=== PATIENT | female | born 1935 | race Caucasian/White ===

== ENCOUNTER 2019-03-26 22:22 | Inpatient (IN) | payer MEDICARE, BC ==
[~2019-03-26] VITALS: Ht 157.5 cm; Wt 50.8 kg
[2019-03-26 23:40] VITALS: BP 123/72
[2019-03-27] MEDS ORDERED: MAG HYDROX/AL HYDROX/SIMETH 30 ML UDC PO PRN
[2019-03-27] MEDS ORDERED: BLOOD SUGAR DIAGNOSTIC 1 EACH STRIP IN ONE
[2019-03-27] MEDS ORDERED: MAGNESIUM HYDROXIDE 30 ML UDC PO PRN
--- NOTE | 2019-03-27 00:16 | NUR ---
GPS RN NOTE: INITIAL ACCUCHECK X1 NOW 107 MG/DL,
[2019-03-27] MEDS ORDERED: DRON400T2 PO (00:22)
[2019-03-27] MEDS ORDERED: ESTR42.511 VG (00:25)
[2019-03-27] MEDS ORDERED: BETA5DRO3 OP (00:27)
[2019-03-27] MEDS ORDERED: BRIN8DRO OP (00:28)
[2019-03-27] MEDS ORDERED: LATA5DRO OP (00:29)
[2019-03-27] MEDS ORDERED: DONE10TA44 PO (00:30)
[2019-03-27] MEDS ORDERED: MEMA10TA56 PO (00:33)
[2019-03-27] MEDS ORDERED: ASPI-1169 PO (00:39)
--- NOTE | 2019-03-27 00:44 | NUR ---
GPS RN NOTE, PATIENT NEEDS A MEDICATION RECONCILIATION PAGED [facility] AND INFORMED DR CHUYITA ALY OF MY FINDINGS. DR CHUYITA ALY STATED, " WILL DID IT AND TAKE CARE OF IT ". ALL ORDERS NOTED AND CARRIED OUT WILL CONTINUE TO MONITOR THIS PATIENT WITH THE HELP OF STAFF.
--- NOTE | 2019-03-27 00:50 | NUR ---
GPS/RN NOTE: ADMITTED DIRECT[facility] FROM [facility] ON 5150 HOLD FOR GD. PATIENT CAME TO THE UNIT AROUND 2330 VIA GURNEY ACCOMPANIED BY 2 PARAMEDICS, HER DAUGHTER AND SON IN-LAW. PLACED PATIENT COMFORTABLY IN BED, SHOWS NO S/S OF ANY PAIN, NO APPARENT DISTRESS NOTED. PER HOLD PATIENT WAS TRANSFERRED FROM [facility] DUE TO PATIENT BEING AGITATED, FEARFUL, RESTLESS, WANDERING AWAY FROM SON'S HOME IN THE MIDDLE OF THE NIGHT FOR FEAR HE OR HIS FRIENDS ARE GOING TO KILL HER. PATIENT NOT SLEEPING FOR AT LEAST A WEEK. FAMILY NOT ABLE TO CARE FOR HER IN HER CURRENT STATE OF MIND. PATIENT KNOWS HER NAME ONLY OTHERWISE IS CONFUSED AND DISORIENTED, DISORGANIZED, HAS POOR SHORT TERM MEMORY.BELONGINGS WERE INVENTORIED AND CHECKED FOR CONTRABAND. PATIENT KNOWS HER NAME ONLY, CONFUSED, DISORIENTED, APPEARS DEPRESSED, COOPERATIVE, INTERACTS WHEN ENGAGED, PLEASANT PATIENT'S RIGHTS HANDBOOK AND MEDICATION GUIDE GIVEN. PATIENT REFUSED TO SIGN CONSENTS, STATED THAT SHE IS FEELING TOO TIRED. PATIENT IS UNDER THE PSYCHIATRIC CARE OF DR. PAINTER AND MEDICAL CARE OF DR. ALY SKIN AND BODY ASSESSMENT WAS DONE, NOTED DISCOLORATION/SKIN TEAR ON HER LEFT ARM AND RIGHT ARM, SCAB ON HER LEFT KNEE, PHOTO TAKEN. NOTIFIED DR. BOOGIE OF MED RECONCILIATION, SAID HE WILL TAKE A LOOK OF THE MEDS. MRSA SCREEN DONE. PATIENT EDUCATED ON THE USE OF CALL NASSAR. BEDSIDE RAILS WERE UP X2 FOR SAFETY. PATIENT BED LOCKED AND PLACED ON LOWEST POSITION. WILL CONTINUE TO MONITOR Q 15 MINS. WITH THE HELP OF THE STAFF FOR SAFETY.
--- NOTE | 2019-03-27 06:07 | NUR ---
GPS/RN NOTE: SON DEBBIE RIVAS WAS NOTIFIED OF ADMISSION, LEFT A MESSAGE VIA ANSWERING MACHINE.
--- NOTE | 2019-03-27 06:16 | NUR ---
GPS/RN NOTE: PATIENT DID NOT SLEEP, OFFERED SLEEPING PILL, REFUSED BY PATIENT, STATED, " I'M OKAY." CHARGE NURSE MADE AWARE LAST NIGHT.
[2019-03-27 06:36] LABS: BASOPHILS % (AUTO) 0.5 % (0.0-2.0); EOSINOPHILS % (AUTO) 1.2 % (0.0-6.0); HEMATOCRIT 43 % (33-45); HEMOGLOBIN 14.1 g/dL (11.5-14.8); LYMPHOCYTES # (AUTO) 1.9 /CMM (0.8-4.8); LYMPHOCYTES % (AUTO) 21.6 % (20.0-44.0); MEAN CORPUSCULAR HGB CONC 33 g/dl (31.0-36.0); MEAN CORPUSCULAR VOLUME 94 fL (82-100); MONOCYTES # (AUTO) 0.7 /CMM (0.1-1.30); MONOCYTES % (AUTO) 7.9 % (2.0-12.0); NEUTROPHILS % (AUTO) 68.8 % (43.0-81.0); PLATELET COUNT (AUTO) 290 /CMM (150-450); RED BLOOD CELL COUNT(AUTO) 4.57 MIL/uL (4.0-5.2); WHITE BLOOD COUNT (AUTO) 8.8 K/uL (4.3-11.0)
[2019-03-27 06:54] LABS: CALCIUM, SERUM 9.2 mg/dL (8.5-10.1); CREATININE 0.8 mg/dL (0.6-1.3); POTASSIUM 3.4 mmol/L (3.5-5.1)
[2019-03-27 07:24] LABS: CHOLESTEROL 175 mg/dL (<200); HDL CHOLESTEROL 90 mg/dL (40-60); LDL 68 mg/dL (0-99); TRIGLYCERIDES 90 mg/dL (30-150)
[2019-03-27 08:00] VITALS: BP 122/64
[2019-03-27] MEDS ORDERED: POTASSIUM CHLORIDE 20 MEQ TAB.PRT.SR PO ONE (09:30)
--- NOTE | 2019-03-27 10:40 | NUR ---
WOUND CARE CONSULT: PT PRESENTS AMBULATORY AND CONTINENT WITH HEALED SKIN TEAR TO RT ARM AND BRUISING TO ARMS, PRESENT ON ADMISSION. WILL SEE PRN.
--- NOTE | 2019-03-27 11:58 | NUR ---
FAMILY CONTACT: SW spoke with pts daughter Arnoldo [phone] for collateral information and discharge planning. Daughter stated that pts behavior changed drastically a week ago and believes it was triggered by pts fear of being alone. Daughter stated that son Tato lives with pt but due to the holidays he has been working nights and leaving pt home alone. 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 Daughter states that pt ran away from her home due to her having delusions that her sons friends were raping her. Daughter stated that pt walked at 4am to her house in panic. Daughter also stated that pt has been saying that she is being killed and that the wolves are eating her and has been screaming and yelling. Per daughter pt lost her 7 years ago and states that pt lost her protector which impacted pts mental health. Pt is currently under the Necrological care of Dr Nuno Garland Address: [address] [place] [address] [address], [place] [address] . Daughter stated that she is considering SNF placement but wants to see how pt reacts to the psych medication before making a decision. ISRAEL will help form a safe and proper discharge in collaboration with .
--- NOTE | 2019-03-27 14:01 | NUR ---
INITIAL DISCHARGE PLAN: Per daughter Arnoldo [phone] she wishes for pt to return home [address] [facility] [address] where pt lives with her Son Tato [phone]. But daughter is interested in SNF placement depending on pts progress. SW will help form a safe and proper discharge in collaboration with .
[2019-03-27 16:00] VITALS: BP 143/63
[2019-03-27] MEDS: DRONEDARONE HYDROCHLORIDE 400 MG TABLET PO SCH (16:35)
[2019-03-27] MEDS: MEMANTINE HCL 5 MG TABLET PO SCH (16:38)
[2019-03-27] MEDS ORDERED: Latanoprostene Bunod (Vyzulta) OP SCH (18:00)
[2019-03-27] MEDS ORDERED: Latanoprostene Bunod (Vyzulta) EACHEYE SCH (19:07)
[2019-03-27 19:14] LABS: APPEARANCE,URINE CLOUDY (CLEAR); BILIRUBIN,URINE NEGATIVE (NEGATIVE); BLOOD, URINE NEGATIVE Ery/uL (NEGATIVE); COLOR,URINE YELLOW (YELLOW); KETONES,URINE NEGATIVE (NEGATIVE); LEUKOCYTE ESTERASE ,URINE NEGATIVE (NEGATIVE); NITRITE, URINE NEGATIVE (NEGATIVE); PH,URINE 5.5 (5.0-8.0); PROTEIN,URINE NEGATIVE (NEGATIVE); UGLUCOSE NEGATIVE (NEGATIVE); UROBILINOGEN,URINE 0.2 EU/dL (0.2)
[2019-03-27 19:23] LABS: RBC,URINE 0-2 /HPF (0-2)
[2019-03-27 19:24] LABS: BACTERIA,URINE 1+ /HPF (None Seen); SQUAMOUS EPITHELIAL CELL,UR Few /HPF (None Seen); URIC ACID CRYSTALS,URINE Few /HPF (None Seen); URINE AMORPHOUS URATE Moderate /HPF (None Seen); WBC,URINE 0-2 /HPF (0-3)
[2019-03-27 20:06] VITALS: BP 162/77
[2019-03-27] MEDS: BETAXOLOL HCL EACHEYE SCH (20:21)
[2019-03-27] MEDS: Latanoprostene Bunod (Vyzulta) EACHEYE SCH (20:21)
[2019-03-27] MEDS: Brinzolamide/Brimonid Tart (Simbrinza 1%-0.2% Eye Drops EACHEYE SCH (20:22)
[2019-03-27] MEDS: risperiDONE 0.25 MG TABLET PO SCH (21:31)
[2019-03-27] MEDS: RIVASTIGMINE TARTRATE 1.5 MG CAPSULE PO SCH (21:31)
[2019-03-27] MEDS ORDERED: DONEPEZIL 5 MG TABLET PO SCH (22:00)
[2019-03-28] MEDS: LORAZEPAM 0.5 MG TABLET PO PRN ×2 (06:10→21:45)
--- NOTE | 2019-03-28 06:22 | NUR ---
GPS RN NOTE: PATIENT AGITATED AND YELLING, ATIVAN 0.5MG 1 TAB ORAL GIVEN PER MD ORDER. WILL CONTINUE TO MONITOR. Addendum: 03/28/19 at 0723 by MIKE ANGELA RN PATIENT APPEARS ANGRY WITH FAMILY AND UPSET WITH CURRENT LIVING SITUATION.
[2019-03-28 08:00] VITALS: BP 133/70
[2019-03-28] MEDS: Brinzolamide/Brimonid Tart (Simbrinza 1%-0.2% Eye Drops EACHEYE SCH ×2 (08:42→17:00)
[2019-03-28] MEDS: BETAXOLOL HCL EACHEYE SCH ×2 (08:42→17:00)
[2019-03-28] MEDS: risperiDONE 0.25 MG TABLET PO SCH ×2 (08:43→20:25)
[2019-03-28] MEDS: MEMANTINE HCL 5 MG TABLET PO SCH ×2 (08:43→17:01)
[2019-03-28] MEDS: ASPIRIN 81 MG TAB.CHEW PO SCH (08:43)
[2019-03-28] MEDS: RIVASTIGMINE TARTRATE 1.5 MG CAPSULE PO SCH ×2 (08:43→20:25)
[2019-03-28] MEDS: DRONEDARONE HYDROCHLORIDE 400 MG TABLET PO SCH ×2 (09:14→17:02)
[2019-03-28 16:00] VITALS: BP 135/69
[2019-03-28] MEDS: Latanoprostene Bunod (Vyzulta) EACHEYE SCH (17:05)
--- NOTE | 2019-03-28 18:40 | NUR ---
RN NOTE: PT'S DAUGHTERKIRSTEN PHONED AND UPDATED REGARDING PT'S UNWITNESSED FALL. GRANDDAUGHTER IS AT BEDSIDE WITH PATIENT.
--- NOTE | 2019-03-28 18:45 | NUR ---
Pt. was found by the sustainability coordinator lying in the floor at about 1825. Pt. was assisted by staffs to her bed and ambulating with staffs assistance. Per. pt. she fell and hit her back part of the body and did not say the reason why she fell, denied any pain. Body checked done and no injury noted. V/S taken: BP 150/96, WV 86, RR 18, RR 18 and Temp. 98.6. Government Minister, critical care unit nurse and family notified. Addendum: 03/28/19 at 1902 by JOCELYNE BURNETTE RN Oxygen sat 98%. Psychiatrist made aware and Radha Montes NP made aware and ordered just to monitor. Primary nurse notified the family and the grand daughter at bedside and was aware. Addendum: 03/28/19 at 1937 by JOCELYNE BURNETTE RN BIOINFORMATICS SOFTWARE ENGINEER found the pt. lying in the floor at the hallway.
--- NOTE | 2019-03-28 19:04 | NUR ---
RN NOTE: GRAND DAUGHTER AT BEDSIDE. PT SLEEPING COMFORTABLY. NO ACUTE DISTRESS NOTED. WILL CONT TO MONITOR.
[2019-03-28 21:01] VITALS: BP 136/72
--- NOTE | 2019-03-28 21:30 | NUR ---
RN NOTE: PT HAS H/O 2.5 HOURS SLEEP FOR 2 NIGHTS. MEDICATED WITH ATIVAN AND RESTORIL PRN FOR INSOMNIA AND VISIBLE AGITATION
[2019-03-28] MEDS: TEMAZEPAM 7.5 MG CAPSULE PO PRN (21:45)
--- NOTE | 2019-03-29 04:37 | NUR ---
RN NOTE: PT SLEEPING. NO ACUTE DISTRESS NOTED. EQUAL RISE AND FALL OF THE CHEST WITH INSPIRATION AND EXPIRATION. WILL CONT TO MONITOR.
[2019-03-29 08:00] VITALS: BP 125/75
[2019-03-29] MEDS: Brinzolamide/Brimonid Tart (Simbrinza 1%-0.2% Eye Drops EACHEYE SCH ×2 (08:37→16:20)
[2019-03-29] MEDS: BETAXOLOL HCL EACHEYE SCH ×2 (08:37→16:20)
[2019-03-29] MEDS: MEMANTINE HCL 5 MG TABLET PO SCH ×2 (08:38→16:18)
[2019-03-29] MEDS: ASPIRIN 81 MG TAB.CHEW PO SCH (08:38)
[2019-03-29] MEDS: risperiDONE 0.25 MG TABLET PO SCH ×2 (08:38→21:08)
[2019-03-29] MEDS: RIVASTIGMINE TARTRATE 1.5 MG CAPSULE PO SCH ×2 (08:38→21:07)
[2019-03-29] MEDS: DRONEDARONE HYDROCHLORIDE 400 MG TABLET PO SCH ×2 (08:50→16:19)
[2019-03-29 16:00] VITALS: BP 147/90
[2019-03-29] MEDS: Latanoprostene Bunod (Vyzulta) EACHEYE SCH (17:50)
[2019-03-29 20:47] VITALS: BP 139/59
[2019-03-29] MEDS: MIRTAZAPINE 15 MG TABLET PO SCH (23:14)
[2019-03-30 08:00] VITALS: BP 141/76
[2019-03-30] MEDS: risperiDONE 0.25 MG TABLET PO SCH ×2 (08:35→21:59)
[2019-03-30] MEDS: ASPIRIN 81 MG TAB.CHEW PO SCH (08:35)
[2019-03-30] MEDS: RIVASTIGMINE TARTRATE 1.5 MG CAPSULE PO SCH ×3 (08:35→21:59)
[2019-03-30] MEDS: DRONEDARONE HYDROCHLORIDE 400 MG TABLET PO SCH ×2 (08:36→16:56)
[2019-03-30] MEDS: Brinzolamide/Brimonid Tart (Simbrinza 1%-0.2% Eye Drops EACHEYE SCH ×2 (08:37→16:58)
[2019-03-30] MEDS: BETAXOLOL HCL EACHEYE SCH ×2 (08:37→16:58)
--- NOTE | 2019-03-30 11:24 | NUR ---
FAMILY CONTACT: ISRAEL spoke with pts daughter Arnoldo [phone] who is requesting pt be transferred to [facility]. ISRAEL informed her that she will call [facility] and see if they have bed availably but informed her that it was not likely pt could be transferred due to their long waiting list. Daughter understood, SW will contact [facility] and inquire on bed availably.
--- NOTE | 2019-03-30 11:30 | NUR ---
FACILITY CONTACT: SW contacted Kendy Martinez [facility] at [facility] Address: [facility] [facility], [place] [address] and spoke with Vira in intake who stated [facility] does not accept hospital to hospital transfers due to them giving priority to their ER first and also stated that if pt has Medicare their hospital does not get paid for psych services.
--- NOTE | 2019-03-30 11:34 | NUR ---
FAMILY CONTACT: ISAREL spoke with pts daughter Arnoldo [phone] and left a voicemail informing her SW contacted Kendy Martinez [facility] at [facility] Address: [address] [facility], [place] [address] and spoke with Vira in intake who stated [facility] does not accept hospital to hospital transfers due to them giving priority to their ER first and also stated that if pt has Medicare their hospital does not get paid for psych services. SW also informed her that if she wishes for pt to get treatment at [facility] she would have to wait until pt is discharged and then take pt to their ER to see if pt meets criteria for acute psych hospitalization.
--- NOTE | 2019-03-30 13:49 | NUR ---
FAMILY CONTACT: SW received a call from pts daughter Arnoldo [phone] expressing concerns for pts care in the hospital and questioning the MD's evaluation as she states MD cannot make a proper evaluation as pt is always asleep when he comes. Daughter stated that she wishes for MD to collaborate with pts Gerontologist Dr. Tobias [phone] to appropriately treat pt. Daughter also questioned SW's role in the hospital and questioned why SW was not doing anything to help facilitate a better treatment plan for pt, SW explained SW role in the hospital setting and explained that SW's main role is to assist facilitate a safe and appropriate discharge plan and per initial conversation with daughter she was unsure if pt will return home or be placed at a SNF. SW explained that SW was waiting for daughter to make a decision and explained that as soon as she provided her with an answer SW would refer pt to an appropriate SNF based on pts needs. SW also addressed daughters desire to transfer pt to [facility] and explained that [facility] does not accept hospital to hospital transfers and also explained that pts medicare insurance was not valid at [facility] per the intake department at [facility]. ISRAEL explained that ISRAEL also collaborated with MD, However, explained that MD had already met with daughter yesterday 03/29/19 evening and treatment was explained to her thoroughly. Daughter acknowledged that MD had met and explained treatment plan to her yesterday and also stated that she still did not know what pts discharge plan will be. SW informed daughter that she would provided MD with the contact information for pts Gerontologist but did not guarantee that the MD will call. Daughter understood and agreed.
--- NOTE | 2019-03-30 13:55 | NUR ---
NURSE: ISRAEL provided nurse with Dr. Tobias's contact number so she can provide MD with the phone number.
[2019-03-30 16:00] VITALS: BP 137/76
[2019-03-30] MEDS: Latanoprostene Bunod (Vyzulta) EACHEYE SCH (18:01)
[2019-03-30 20:10] VITALS: BP 147/61
[2019-03-30] MEDS: MIRTAZAPINE 15 MG TABLET PO SCH (21:59)
[2019-03-31 08:00] VITALS: BP 146/66
[2019-03-31] MEDS: ASPIRIN 81 MG TAB.CHEW PO SCH (08:48)
[2019-03-31] MEDS: risperiDONE 0.25 MG TABLET PO SCH ×2 (08:48→20:52)
[2019-03-31] MEDS: RIVASTIGMINE TARTRATE 1.5 MG CAPSULE PO SCH ×4 (08:48→21:00)
[2019-03-31] MEDS: DRONEDARONE HYDROCHLORIDE 400 MG TABLET PO SCH ×2 (08:51→17:27)
[2019-03-31] MEDS: BETAXOLOL HCL EACHEYE SCH ×2 (08:51→17:31)
[2019-03-31] MEDS: Brinzolamide/Brimonid Tart (Simbrinza 1%-0.2% Eye Drops EACHEYE SCH ×2 (08:51→17:27)
--- NOTE | 2019-03-31 15:51 | NUR ---
GROUP NOTE: SW encouraged pt to participate in group therapy on this present day to discuss "discharge planning." Pt was asleep and not easily aroused.
[2019-03-31 16:00] VITALS: BP 157/83
--- NOTE | 2019-03-31 16:00 | NUR ---
Group Note: SW encouraged pt to participate in group therapy on 03/30/19 at 2pm to discuss "social supports." Pt was unable to participate due to confusion and being sedated due to her medication. Pt mumbled incoherently about her daughter is involved in her treatment.
[2019-03-31] MEDS: Latanoprostene Bunod (Vyzulta) EACHEYE SCH (17:27)
[2019-03-31 20:53] VITALS: BP 150/68
[2019-03-31] MEDS: MIRTAZAPINE 15 MG TABLET PO SCH (21:21)
--- NOTE | 2019-03-31 21:47 | NUR ---
GPS RN NOTES: NON ADMINISTERED EXELON 1.5MG PO @2100 DUE TO MEDICATION ALREADY GIVEN AT 2030. CONTINUE TO MONITOR
[2019-04-01 08:00] VITALS: BP 150/68
[2019-04-01] MEDS: risperiDONE 0.25 MG TABLET PO SCH ×2 (08:35→21:02)
[2019-04-01] MEDS: RIVASTIGMINE TARTRATE 1.5 MG CAPSULE PO SCH ×4 (08:35→21:20)
[2019-04-01] MEDS: ASPIRIN 81 MG TAB.CHEW PO SCH (08:35)
[2019-04-01] MEDS: BETAXOLOL HCL EACHEYE SCH ×2 (08:36→16:36)
[2019-04-01] MEDS: Brinzolamide/Brimonid Tart (Simbrinza 1%-0.2% Eye Drops EACHEYE SCH ×2 (08:36→16:36)
[2019-04-01] MEDS: DRONEDARONE HYDROCHLORIDE 400 MG TABLET PO SCH ×2 (08:37→16:35)
[2019-04-01 16:00] VITALS: BP 126/62
[2019-04-01] MEDS: Latanoprostene Bunod (Vyzulta) EACHEYE SCH (18:08)
[2019-04-01] MEDS: MIRTAZAPINE 15 MG TABLET PO SCH (21:02)
[2019-04-01 21:04] VITALS: BP 122/66
[2019-04-01] MEDS: TEMAZEPAM 7.5 MG CAPSULE PO PRN (23:46)
[2019-04-02 08:00] VITALS: BP 145/68
[2019-04-02] MEDS: risperiDONE 0.25 MG TABLET PO SCH ×2 (08:32→20:33)
[2019-04-02] MEDS: ASPIRIN 81 MG TAB.CHEW PO SCH (08:32)
[2019-04-02] MEDS: RIVASTIGMINE TARTRATE 1.5 MG CAPSULE PO SCH ×4 (08:32→21:54)
[2019-04-02] MEDS: DRONEDARONE HYDROCHLORIDE 400 MG TABLET PO SCH ×2 (08:34→17:33)
[2019-04-02] MEDS: BETAXOLOL HCL EACHEYE SCH ×2 (08:35→17:34)
[2019-04-02] MEDS: Brinzolamide/Brimonid Tart (Simbrinza 1%-0.2% Eye Drops EACHEYE SCH ×2 (08:35→17:33)
--- NOTE | 2019-04-02 09:54 | NUR ---
SNF REFERRAL: ISRAEL faxed SNF referral to Meghana, admissions coordinators at [facility] Address: [address], [place] [address] for review.
--- NOTE | 2019-04-02 09:57 | NUR ---
SNF REFERRAL: ISRAEL faxed SNF referral to Shanon/ Monika, admissions coordinators at [facility] Address: [address] [place] [phone] for review.
--- NOTE | 2019-04-02 10:07 | NUR ---
PC HEARING NOTIFICATION: SW contacted pts daughter Arnoldo [phone] to inform her pt will have a PC hearing on this present day, Daughter stated that she may not be able to attend as she works until 8pm but stated that pts sister is visiting from out of state and will have her come in her presence. Daughter also stated that she is currently looking at memory care facilities and also states that she wishes to take pt home, SW informed her that she faxed 2 SNF referrals in case daughter needs more time looking for a memory care facility for pt, daughter agreed.
--- NOTE | 2019-04-02 15:20 | NUR ---
PC HEARING: Pts daughter Arnoldo and sister Germaine attended pts PC hearing, family is concerned that pt is over medicated. SW and supercharger mechanic will express families's concerns with MD. Addendum: 04/03/19 at 0821 by AIRAM WOOD Daughter also informed ISRAEL that she was currently looking at two memory care facilities, ([facility]) Daughter mentioned to SW that she needed time to make a decision as she still needed to meet with a financial rep. ISRAEL explained that in the interim pt can be placed at a SNF short-term which is covered by pts Medicare and that will give daughter more time to make her decision for extermination inspector placements. Daughter stated that she did not want to do that because that would cause disruption to pt and she did not want to continue moving her around. ISRAEL will continue to work with daughter and MD for appropriate placement.
[2019-04-02 16:00] VITALS: BP 135/75
[2019-04-02] MEDS: Latanoprostene Bunod (Vyzulta) EACHEYE SCH (18:46)
[2019-04-02 19:51] LABS: CALCIUM, SERUM 9.1 mg/dL (8.5-10.1); CREATININE 0.8 mg/dL (0.6-1.3); POTASSIUM 4.5 mmol/L (3.5-5.1)
[2019-04-02 20:15] LABS: BASOPHILS # (AUTO) 0.1 /CMM (0.0-0.2); BASOPHILS % (AUTO) 0.7 % (0.0-2.0); EOSINOPHILS % (AUTO) 2.1 % (0.0-6.0); HEMATOCRIT 43 % (33-45); HEMOGLOBIN 14.2 g/dL (11.5-14.8); LYMPHOCYTES # (AUTO) 2.3 /CMM (0.8-4.8); LYMPHOCYTES % (AUTO) 28.1 % (20.0-44.0); MEAN CORPUSCULAR HGB CONC 33 g/dl (31.0-36.0); MEAN CORPUSCULAR VOLUME 94 fL (82-100); MONOCYTES # (AUTO) 0.7 /CMM (0.1-1.30); MONOCYTES % (AUTO) 9.2 % (2.0-12.0); NEUTROPHILS # (AUTO) 4.8 /CMM (1.8-8.9); NEUTROPHILS % (AUTO) 59.9 % (43.0-81.0); PLATELET COUNT (AUTO) 281 /CMM (150-450); RED BLOOD CELL COUNT(AUTO) 4.58 MIL/uL (4.0-5.2)
[2019-04-02 20:45] VITALS: BP 141/65
[2019-04-02] MEDS: MIRTAZAPINE 15 MG TABLET PO SCH (21:54)
[2019-04-03 08:00] VITALS: BP 121/69
[2019-04-03] MEDS: ASPIRIN 81 MG TAB.CHEW PO SCH (08:31)
[2019-04-03] MEDS: RIVASTIGMINE TARTRATE 1.5 MG CAPSULE PO SCH ×4 (08:31→22:18)
[2019-04-03] MEDS: BETAXOLOL HCL EACHEYE SCH ×2 (08:31→16:36)
[2019-04-03] MEDS: Brinzolamide/Brimonid Tart (Simbrinza 1%-0.2% Eye Drops EACHEYE SCH ×2 (08:32→16:35)
[2019-04-03] MEDS: DRONEDARONE HYDROCHLORIDE 400 MG TABLET PO SCH ×2 (08:34→16:35)
--- NOTE | 2019-04-03 09:55 | NUR ---
FAMILY CONTACT: ISRAEL spoke with pts daughter Arnoldo [phone] regarding pts treatment and discharge plan, SW informed her that MD has decreased Risperal to 0.25 HS and informed her that pt stated to MD that she has been feeling sad and depressed due to the mistakes she has made in the past. SW informed daughter that she will follow up with the SNF referrals and update her on status of referrals. Daughter states that she agrees with SNF placement as she needs time to make a decision for computer terminal operator care and also needs to get pts fiances in order before placing pt at a Memory Care Facility.
--- NOTE | 2019-04-03 10:16 | NUR ---
SNF REFERRAL: SW spoke with Paula treatment coordinator at [facility] Address: [address], [place] [address] who stated there are currently no beds available at their facility and will call SW back next week to follow up on bed availability.
[2019-04-03 16:00] VITALS: BP 137/68
[2019-04-03] MEDS: Latanoprostene Bunod (Vyzulta) EACHEYE SCH (17:49)
--- NOTE | 2019-04-03 19:30 | NUR ---
GPS RN NOTE, RECEIVED PATIENT AWAKE AND IN BED, NO S/S OR COMPLAINTS OF PAIN AT THIS TIME. PATIENT IS DISPLAYING NO S/S OF APPARENT DISTRESS AT THIS TIME. PATIENT BREATHING IS UNLABORED WITH EQUAL RISE AND FALL OF THE CHEST. PATIENT IS ALERT AND ORIENTED X 1-2 ON ROOM AIR WITH A SPO2 97%. PATIENT IS COMPLIANT WITH MEDICATIONS, CONFUSED, ANXIOUS AT TIMES, SUSPICIOUS, PARANOID, AND COOPERATIVE. PATIENT DENIES SUICIDAL AND HOMICIDAL IDEATIONS AT THIS TIME. PATIENT ASSISTED WITH TURNING AND REPOSITIONING Q2HR AND PRN FOR COMFORT AND CIRCULATION. PATIENT HAS NO NEEDS AT THIS TIME. PATIENT EDUCATED ON THE USE OF THE CALL NASSAR. PATIENT BED SIDE RAILS UP X 2 FOR SAFETY. PATIENT BED IS LOCKED, LOW, WITH BED ALARM ON. WILL CONTINUE TO MONITOR THIS PATIENT Q15 MINUTES WITH THE HELP OF STAFF TO MAINTAIN SAFETY.
[2019-04-03 20:36] VITALS: BP 136/61
[2019-04-03] MEDS: risperiDONE 0.25 MG TABLET PO SCH (22:17)
[2019-04-03] MEDS: MIRTAZAPINE 15 MG TABLET PO SCH (22:18)
[2019-04-04 08:00] VITALS: BP 152/72
--- NOTE | 2019-04-04 08:30 | NUR ---
ASSISTED BACK TO BED C/O DIZZINESS.DR. FABIAN MADE AWARE OF DIZZINESS.
[2019-04-04] MEDS: RIVASTIGMINE TARTRATE 1.5 MG CAPSULE PO SCH ×3 (09:00→21:50)
[2019-04-04] MEDS: ASPIRIN 81 MG TAB.CHEW PO SCH (10:07)
[2019-04-04] MEDS: BETAXOLOL HCL EACHEYE SCH ×2 (10:07→17:43)
[2019-04-04] MEDS: Brinzolamide/Brimonid Tart (Simbrinza 1%-0.2% Eye Drops EACHEYE SCH ×2 (10:08→17:43)
[2019-04-04] MEDS: DRONEDARONE HYDROCHLORIDE 400 MG TABLET PO SCH ×2 (10:08→17:43)
[2019-04-04 16:00] VITALS: BP 133/69
[2019-04-04] MEDS: Latanoprostene Bunod (Vyzulta) EACHEYE SCH (17:43)
--- NOTE | 2019-04-04 19:17 | NUR ---
COOPERATIVE,MED COMPLIANT.
--- NOTE | 2019-04-04 19:30 | NUR ---
GPS RN NOTE, RECEIVED PATIENT AWAKE AND IN BED, NO S/S OR COMPLAINTS OF PAIN AT THIS TIME. PATIENT IS DISPLAYING NO S/S OF APPARENT DISTRESS AT THIS TIME. PATIENT BREATHING IS UNLABORED WITH EQUAL RISE AND FALL OF THE CHEST. PATIENT IS ALERT AND ORIENTED X 1-2 ON ROOM AIR WITH A SPO2 98%. PATIENT IS COMPLIANT WITH MEDICATIONS, CONFUSED, ANXIOUS AT TIMES, SUSPICIOUS, PARANOID, AND COOPERATIVE. PATIENT DENIES SUICIDAL AND HOMICIDAL IDEATIONS AT THIS TIME. PATIENT ASSISTED WITH TURNING AND REPOSITIONING Q2HR AND PRN FOR COMFORT AND CIRCULATION. PATIENT HAS NO NEEDS AT THIS TIME. PATIENT EDUCATED ON THE USE OF THE CALL NASSAR. PATIENT BED SIDE RAILS UP X 2 FOR SAFETY. PATIENT BED IS LOCKED, LOW, WITH BED ALARM ON. WILL CONTINUE TO MONITOR THIS PATIENT Q15 MINUTES WITH THE HELP OF STAFF TO MAINTAIN SAFETY.
[2019-04-04 20:44] VITALS: BP 130/75
[2019-04-04] MEDS: MIRTAZAPINE 15 MG TABLET PO SCH (21:50)
[2019-04-04] MEDS: risperiDONE 0.25 MG TABLET PO SCH (21:50)
[2019-04-05 08:00] VITALS: BP 129/71
[2019-04-05] MEDS: ASPIRIN 81 MG TAB.CHEW PO SCH (08:46)
[2019-04-05] MEDS: RIVASTIGMINE TARTRATE 1.5 MG CAPSULE PO SCH ×2 (08:46→21:55)
[2019-04-05] MEDS: DRONEDARONE HYDROCHLORIDE 400 MG TABLET PO SCH ×2 (08:46→17:14)
[2019-04-05] MEDS: Brinzolamide/Brimonid Tart (Simbrinza 1%-0.2% Eye Drops EACHEYE SCH ×2 (08:47→17:14)
[2019-04-05] MEDS: BETAXOLOL HCL EACHEYE SCH ×2 (08:47→17:15)
[2019-04-05] MEDS: ACETAMINOPHEN 325 MG TABLET PO PRN (12:30)
[2019-04-05 16:00] VITALS: BP 119/56
[2019-04-05] MEDS: Latanoprostene Bunod (Vyzulta) EACHEYE SCH (17:15)
[2019-04-05 20:49] VITALS: BP 109/63
[2019-04-05] MEDS: MIRTAZAPINE 15 MG TABLET PO SCH (21:55)
[2019-04-05] MEDS: risperiDONE 0.25 MG TABLET PO SCH (21:55)
--- NOTE | 2019-04-06 06:07 | NUR ---
PT SKIN ASSESSMENT DONE. REDNESS AND IRRITATION ON PERINEAL AREA. UNABLE TO DETERMINE IF PRESENT ON ADMISSION. PICTURE TAKEN AND IN CHART. WILL ENDORSE TO AM SHIFT. WOUND CONSULT ORDERED
[2019-04-06 07:21] LABS: CALCIUM, SERUM 8.4 mg/dL (8.5-10.1); CREATININE 0.9 mg/dL (0.6-1.3); POTASSIUM 3.9 mmol/L (3.5-5.1)
[2019-04-06 08:00] VITALS: BP 117/58
[2019-04-06] MEDS: BETAXOLOL HCL EACHEYE SCH ×2 (08:47→16:59)
[2019-04-06] MEDS: DRONEDARONE HYDROCHLORIDE 400 MG TABLET PO SCH ×2 (08:47→16:57)
[2019-04-06] MEDS: RIVASTIGMINE TARTRATE 1.5 MG CAPSULE PO SCH ×2 (08:47→21:28)
[2019-04-06] MEDS: ASPIRIN 81 MG TAB.CHEW PO SCH (08:47)
[2019-04-06] MEDS: Brinzolamide/Brimonid Tart (Simbrinza 1%-0.2% Eye Drops EACHEYE SCH ×2 (08:48→16:59)
--- NOTE | 2019-04-06 09:16 | NUR ---
SNF REFERRAL: SW spoke with Monika, marketing program coordinator at [facility] Address: [address] [place] [phone] who stated pt has not been accepted due to her behavioral issues and also them not accepting [employer] insurance.
--- NOTE | 2019-04-06 09:34 | NUR ---
SNF REFERRAL: SW faxed SNF referral to [facility] Address: [address] [place] [address] , [facility] Address: [address] [place] [address] , and [facility] Address: [address] [place] [address] for review.
--- NOTE | 2019-04-06 09:37 | NUR ---
FAMILY CONTACT: ISRAEL spoke with pts daughter Arnoldo [phone] regarding pts discharge plan, ISRAEL informed informed her that [facility] and [facility] did not accept pt and also stated that ISRAEL has faxed 3 SN[address]errals [address] [facility], [facility], and [facility]. Daughter stated that she was considering taking pt home with a caregiver. Daughter asked how pt was doing on this present day and ISRAEL transferred the call to the nurses station so she could speak to pts RN. ISRAEL will continue to follow up with daughter and collaborate with discharge.
--- NOTE | 2019-04-06 10:29 | NUR ---
WOUND CARE CONSULT: PT NOW NOTED TO BE STAYING IN BED AND INCONTINENT WITH RASH TO PERINEAL AREA. RECOMMENDATIONS MADE FOR SKIN CARE AND PROTECTION. DISCUSSED WITH NURSING STAFF. WILL SEE PRN. RAMIREZ IN AGREEMENT WITH PLAN OF CARE. Addendum: 04/06/19 at 1030 by SUNI VILLAFANA WNDNU Amended: Links added.
[2019-04-06] MEDS: Z GUARD REMEDY 2 OZ OINT TP SCH (12:28)
[2019-04-06] MEDS: CLOTRIMAZOLE 1% 15 GM TUBE TP SCH (12:29)
--- NOTE | 2019-04-06 12:40 | NUR ---
SNF REFERRAL: SW received a call from Bob recruiting coordinator at [facility] Address: [address] [place] [address], [place] [address] stating pt was not accepted due to the facility not accepting geropsych pts.
[2019-04-06 16:00] VITALS: BP 139/64
[2019-04-06] MEDS: Latanoprostene Bunod (Vyzulta) EACHEYE SCH (17:00)
[2019-04-06] MEDS: ACETAMINOPHEN 325 MG TABLET PO PRN (20:22)
[2019-04-06 20:44] VITALS: BP 114/62
[2019-04-06] MEDS: MIRTAZAPINE 15 MG TABLET PO SCH (21:28)
[2019-04-06] MEDS: risperiDONE 0.25 MG TABLET PO SCH (21:28)
--- NOTE | 2019-04-06 21:43 | NUR ---
AT 1957 PT WAS FOUND ON HALLWAY ON THE FLOOR FROM AN UNWITNESSED FALL WITH A BUMP ON HER HEAD. ICE PACK PLACED ON SWOLLEN SCALP AND TYLENOL 650MG GIVEN PO FOR PAIN. PT V/S AT 1957 BP131/59, R19,P83, T98, O2 SAT 95%. V/S BEFORE FALL 154/62, T98.2, R18, P86, O2 SAT 93%. DR SANCHEZ NOTIFIED AND CT SCAN ORDERED. CT SCAN IMPRESSION: NO DEFINITE ACUTE INTRACRANIAL ABNORMALITY. SUPERFICIAL LEFT POSTERIOR SCALP HEMATOMA OR CONTUSION. DR SANCHEZ INFORMED OF RESULT. ASKED NURSE TO CONTINUE TO MONITOR. NEXT OF KIN CALLED AND MESSAGE LEFT FOR HIM TO RETURN CALL. PM MEDS ADMINISTERED ORDERED. NEURO ASSESSMENT DONE. PT DENIES SI, HI AT THIS TIME. PT IN [facility] BY NURSING STATION. OFFERED ORAL FLUID AND SNACKS TOLERATED, SAFETY AND FALL PRECAUTION OBSERVED, Q 15 MINUTES OBSERVATION CONTINUED. WILL CONTINUE TO MONITOR FOR MOOD, SAFETY AND BEHAVIOR.
[2019-04-07 08:00] VITALS: BP 129/65
--- NOTE | 2019-04-07 08:29 | NUR ---
SNF REFERRAL: SW received a call from Kimberley, environmental coordinator at [facility] Address: [address] [place] [address] stating pt was not accepted due to the facility not taking psych patients.
[2019-04-07] MEDS: ASPIRIN 81 MG TAB.CHEW PO SCH (09:18)
[2019-04-07] MEDS: RIVASTIGMINE TARTRATE 1.5 MG CAPSULE PO SCH ×2 (09:18→21:02)
[2019-04-07] MEDS: BETAXOLOL HCL EACHEYE SCH ×2 (09:18→17:22)
[2019-04-07] MEDS: DRONEDARONE HYDROCHLORIDE 400 MG TABLET PO SCH ×2 (09:19→17:21)
[2019-04-07] MEDS: CLOTRIMAZOLE 1% 15 GM TUBE TP SCH ×2 (09:19→17:22)
[2019-04-07] MEDS: Z GUARD REMEDY 2 OZ OINT TP SCH (09:19)
[2019-04-07] MEDS: Brinzolamide/Brimonid Tart (Simbrinza 1%-0.2% Eye Drops EACHEYE SCH ×2 (09:19→17:21)
--- NOTE | 2019-04-07 12:41 | NUR ---
FAMILY CONTACT: ISRAEL spoke with pts daughter Arnoldo [phone] regarding pts discharge plan, SW informed her that pt will be discharged tomorrow Saturday04/08/19. Daughter stated that she wishes for pt to be discharged to [facility] and refused for pt to be discharged if [facility] does not have a bed for her. SW reminded daughter that yesterday she informed SW that she wished for pt to be discharged home with a caregiver and stated that she was also considering SNF placement. Daughter became upset and blamed SW for not assisting her, SW explained that daughter has been constantly changing her mind about placement and also stated that SW she has been helpful and has provided options that daughter has not accepted. SW informed daughter that she will contact [facility] to inquire on their bed status and assessment but made it very clear that pt will be discharged tomorrow, daughter agreed and stated that if [facility] does not have a bed that she will take pt home with a caregiver that will be coming at 1600 on this present day to assess pts level of care.
--- NOTE | 2019-04-07 13:01 | NUR ---
FACILITY CONTACT: ISRAEL contacted [facility] Address: [address], [place] [address] and spoke with Frank, program or project administrator who stated that pts daughter just contacted him today and informed ISRAEL that he was going to meet with daughter on this present day and discuss placement. Frank stated that he will have a nurse come today to assess pt and requested Physicians Report be filled out and faxed back for possible placement tomorrow.
--- NOTE | 2019-04-07 15:03 | NUR ---
GROUP NOTE: SW encouraged pt to participate in group on this present day discussing "positive coping skills." Pt states that she feel better and that she just wishes to go home but does not know what plans her daughter has for her. Pt states that she enjoys reading and looking at magazines and talking to her new roommate. Pts mood appears depressed with congruent affect. Pt is less isolative and less withdrawn and is walking more.
--- NOTE | 2019-04-07 15:07 | NUR ---
FACILITY CONTACT: ISRAEL contacted [facility] Address: [address], [place] [address] and spoke with Frank, sales administrator who states that nurse cannot come on this present day to assess pt and will be coming tomorrow morning. Frank also stated that pts daughter has reserved a room for pt. ISRAEL will fax physicians report once it has been completed by RN and signed by .
--- NOTE | 2019-04-07 15:45 | NUR ---
FAMILY CONTACT: SW received a call from pts daughter Arnoldo [phone] stating that she has met with Frank from [facility] and has reserved a room for pt and states that she wishes for pt to be discharged directly there from hospital. SW informed her that she also spoke with Frank and informed her that SW is waiting for [facility] to come assess pt and ISRAEL will also send paperwork to [facility] and possibly request pt to be discharged on instead of Saturday depending on [facility]'s availability. Daughter states that she will arrange transportation.
[2019-04-07 16:00] VITALS: BP 126/66
[2019-04-07] MEDS: Latanoprostene Bunod (Vyzulta) EACHEYE SCH (17:23)
[2019-04-07 20:20] VITALS: BP 121/63
[2019-04-07] MEDS: MIRTAZAPINE 15 MG TABLET PO SCH (21:02)
[2019-04-07] MEDS: risperiDONE 0.25 MG TABLET PO SCH (21:03)
--- NOTE | 2019-04-07 23:43 | NUR ---
GPS RN NOTES: NOTIFIED INDUSTRIAL MAINTENANCE MANAGER SEJAL DE LA FUENTE REGARDING PTS CT SCAN RESULTS SHOWING SUPERFICIAL LEFT POSTERIOR SCALP HEMATOMA OR CONTUSION. NNO AT THE MOMENT. CONTINUE TO MONITOR.
[2019-04-08 08:00] VITALS: BP 132/61
--- NOTE | 2019-04-08 09:00 | NUR ---
FACILITY CONTACT: ISRAEL contacted [facility] Address: [address], [place] [address] and left a voicemail with Frank radiology administrator requesting update on assessment time.
[2019-04-08] MEDS: Z GUARD REMEDY 2 OZ OINT TP SCH (09:17)
[2019-04-08] MEDS: RIVASTIGMINE TARTRATE 1.5 MG CAPSULE PO SCH ×2 (09:18→21:26)
[2019-04-08] MEDS: DRONEDARONE HYDROCHLORIDE 400 MG TABLET PO SCH ×2 (09:18→16:50)
[2019-04-08] MEDS: ASPIRIN 81 MG TAB.CHEW PO SCH (09:18)
[2019-04-08] MEDS: CLOTRIMAZOLE 1% 15 GM TUBE TP SCH ×2 (09:18→16:51)
[2019-04-08] MEDS: BETAXOLOL HCL EACHEYE SCH ×2 (09:19→16:51)
[2019-04-08] MEDS: Brinzolamide/Brimonid Tart (Simbrinza 1%-0.2% Eye Drops EACHEYE SCH ×2 (09:20→16:51)
--- NOTE | 2019-04-08 10:30 | NUR ---
FACILITY CONTACT: ISRAEL met with HELENA Matamoros at [facility] Address: [address], [place] [address] who came on this present day to assess pt.
--- NOTE | 2019-04-08 12:30 | NUR ---
FAMILY CONTACT: ISRAEL spoke with pts daughter Arnoldo [phone] and provided her with an update, ISRAEL informed her that ISRAEL has faxed [phone] forms to [facility] and that a nurse came this morning to assess pt. ISRAEL stated that she is just waiting on [facility] to provide SW with a response. Daughter agreed.
--- NOTE | 2019-04-08 14:01 | NUR ---
FACILITY CONTACT: ISRAEL received a call from Frank, registered account administrator at [facility] Address: [address], [place] [address] stating that pt can be discharged to their facility on this present day. ISRAEL stated that pt will be discharged tomorrow and Frank agreed.
--- NOTE | 2019-04-08 14:06 | NUR ---
FAMILY CONTACT: ISRAEL spoke with pts daughter Arnoldo [phone] and stated that [facility] has approved transfer for this present day, ISRAEL stated that pt will be discharged tomorrow. SW provided daughter with [facility] [employer] contact number to arrange transportation to [facility]. Daughter stated she will call ISRAEL back to confirm the picking crew supervisor time.
--- NOTE | 2019-04-08 15:32 | NUR ---
FAMILY CONTACT: SW spoke with pts daughter Arnoldo [phone] who stated that she will be coming tomorrow 04/09/19 to lease picker pt at 2:00pm and transport to [facility].
[2019-04-08 16:00] VITALS: BP 116/56
--- NOTE | 2019-04-08 16:01 | NUR ---
GROUP NOTE: SW encouraged pt to attend group therapy on this present day discussing "reality testing." Pt was asleep and not easily aroused.
[2019-04-08] MEDS: Latanoprostene Bunod (Vyzulta) EACHEYE SCH (16:51)
[2019-04-08 19:43] VITALS: BP 133/61
[2019-04-08] MEDS: MIRTAZAPINE 15 MG TABLET PO SCH (21:26)
[2019-04-08] MEDS: risperiDONE 0.25 MG TABLET PO SCH (21:26)
[2019-04-09 08:00] VITALS: BP 129/72
[2019-04-09] MEDS: ASPIRIN 81 MG TAB.CHEW PO SCH (08:37)
[2019-04-09] MEDS: DRONEDARONE HYDROCHLORIDE 400 MG TABLET PO SCH (08:37)
[2019-04-09] MEDS: RIVASTIGMINE TARTRATE 1.5 MG CAPSULE PO SCH (08:37)
[2019-04-09] MEDS: BETAXOLOL HCL EACHEYE SCH (08:38)
[2019-04-09] MEDS: Z GUARD REMEDY 2 OZ OINT TP PRN ×2 (08:38→08:39)
[2019-04-09] MEDS: CLOTRIMAZOLE 1% 15 GM TUBE TP SCH (08:38)
[2019-04-09] MEDS: Brinzolamide/Brimonid Tart (Simbrinza 1%-0.2% Eye Drops EACHEYE SCH (08:39)
[2019-04-09] MEDS: Z GUARD REMEDY 2 OZ OINT TP SCH (08:40)
--- NOTE | 2019-04-09 10:07 | NUR ---
DISCHARGE NOTE: Pt will be discharged at 2:00pm to [facility] Address: [address] , [place] [address] . Pts Daughter Arnoldo [phone] will be picking pt up and transporting to the facility. Pts mood is euthymic with congruent affect. Pt denied visual/auditory hallucinations and denied suicidal/homicidal ideation. Pt will be under the care of Psychiatrist: Dr. Carlo Swanson Address: [address] [place] [address] and Manager Industrial: Dr. Kristofer Devlin Address: [address] [address] . The multidisciplinary exit care form was done, printed, signed, and given to the patient.
--- NOTE | 2019-04-09 13:30 | NUR ---
PROGRESSIVE CARE NURSE NOTE: 83 YEAR OLD FEMALE DISCHARGED TO [facility] IN STABLE CONDITION. COMPLIANT WITHH MEDICATIONS, COOPERATIVE WITH TREATMENT PLAN. PATIENT DENIES SI/HI AND INSTRUCTED TO GO TO THE CLOSEST ER IF DEVELOPING SI/HI. BEHAVIOR IMPROVED, PSYCHIATRIC TREATMENT PLANS MET, MEDICAL TREATMENT PLANS DEFERRED FOR CONTINUAL MONITORING. EDUCATED PT ABOUT THE AFTER CARE PLAN AND COPY PORVIDED. RETURNED PERSONAL BELONGINGS TO PT. MEDICATION RECONCIILED WITH DR. GARZA AND DR. PAINTER. PATIENT SIGNED DISCHARGE PAPERWORK. WOUND PICTURED TAKEN AND DOCUMENTED IN CHART. ID BAND REMOVED. PT LEFT THE UNIT AT 1:00 WITH SON NICK RIVAS.
== END 2019-04-09 13:30 | DRG 885 ==
LOC: GPS 23:20
PROVIDERS: ADMIT Psychiatry & Neurology Psychiatry; ATTEND Registered Nurse
DX: F29 Unspecified psychosis not due to a substance or known physiological condition (principal); E87.0 Hyperosmolality and hypernatremia; E86.1 Hypovolemia; E87.6 Hypokalemia; F03.90 Unspecified dementia, unspecified severity, without behavioral disturbance, psychotic disturbance, mood disturbance, and anxiety; G47.00 Insomnia, unspecified; I10 Essential (primary) hypertension; I48.91 Unspecified atrial fibrillation; Z73.6 Limitation of activities due to disability; F32.9 Major depressive disorder, single episode, unspecified; R79.89 Other specified abnormal findings of blood chemistry
CPT/HCPCS: 36415; 70450-TC; 71045-TC; 80048-TC; 80061-TC; 81000-TC; 82962-TC; 85025-TC; 87081-TC